=== PATIENT | male | born 1945 | race Two or more races ===

== ENCOUNTER 2024-10-20 00:47 | Emergency (ER) | payer OTHER ==
[~2024-10-20] VITALS: Ht 188 cm; Wt 90.9 kg
[2024-10-20] MEDS ORDERED: SODIUM CHLORIDE 0.9% 1,000 ML IV ONE (01:00)
[2024-10-20] MEDS ORDERED: MAGNESIUM SULFATE 1GM/100ML 100 ML IV SCH (01:00)
[2024-10-20] MEDS: IPRATROPIUM BROM 0.5 MG/2.5ML INH SOL NEB ONE (01:14)
[2024-10-20] MEDS: ALBUTEROL SULF 2.5 MG/0.5ML(0.5%) NEB SOLN NEB ONE (01:14)
[2024-10-20 01:18] LABS: Base Excess -3.3 mmol/L (-2.0-3.0)
--- NOTE | 2024-10-20 01:22 | DVH ---
CHEST RADIOGRAPH Indication: SOB Technique: 1 view Comparison: None FINDINGS: Lines and Tubes: None Lungs/Pleura: Mild interstitial prominence. No evidence of focal consolidation, or pleural abnormali ty. Cardiomediastinum: Unremarkable. Other: No acute osseous abnormality. IMPRESSION: 1. Mild interstitial prominence suggesting edema or atypical infection. No consolidation.
--- NOTE | 2024-10-20 01:27 | ED.PDOC ---
SOB-HPI HPI Comments 79-year-old male who came to ER due to shortness of breath. Patient diagnosed with COVID-19 6 days ago, he has been having fever, cough, shortness of breath, chest tightness and wheezing, progressively worsening the past few days. Patient is saturating 94% room air Chief Complaint: Shortness of Breath Time Seen by MD: 01:26 Reviewed notes: Nurses Notes Information Source: Patient, Relative Mode of Arrival: Wheelchair Severity: Moderate Timing: Days Duration: Since onset Context: At Rest, With Light Exertion History of: Other (COVID-19) Prehospital treatment: Oxygen Associated Signs and Symptoms: Fever, Wheeze, Cough, Nasal Congestion, Sore Throat, Chest Pain If cough with SOB: Non-Productive Past Medical History Past Medical History (Other): COVID-19 Surgical History: Denies all surgeries Family History Family History: Reviewed,noncontributory to illness Social History Smoker: Non-Smoker Alcohol: Denies ETOH Use Drugs: Denies Drug Use Lives In: Home Constitutional: reports: fever; denies: chills, diaphoresis, fatigue, malaise, sweats, weakness, others EENTM: denies: blurred vision, double vision, ear bleeding, ear discharge, ear drainage, ear pain, ear ringing, eye pain, eye redness, hearing loss, mouth pain, mouth swelling, nasal discharge, nose bleeding, nose congestion, nose pain, photophobia, tearing, throat pain, throat swelling, voice changes, others Respiratory: reports: cough, SOB at rest, shortness of breath, SOB with excertion, wheezing; denies: hemoptysis, orthopnea, stridor, others Cardiovascular: reports: chest pain; denies: dizzy spells, diaphoresis, Dyspnea on exertion, edema, irregular heart beat, left arm pain, lightheadedness, palpitations, PND, syncope, others Gastrointestinal: denies: abdomen distended, abdominal pain, blood streaked bowels, constipated, diarrhea, dysphagia, difficulty swallowing, hematemesis, melena, nausea, poor appetite, poor fluid intake, rectal bleeding, rectal pain, vomiting, others Genitourinary: denies: burning, dysuria, flank pain, frequency, hematuria, incontinence, penile discharge, penile sore, pain, testicle pain, testicle swelling, urgency, others Neurological: denies: dizziness, fainting, headache, left sided numbness, left sided weakness, numbness, paresthesia, pre-existing deficit, right sided numbness, right sided weakness, seizure, speech problems, tingling, tremors, weakness, others Musculoskeletal: denies: back pain, gout, joint pain, joint swelling, muscle p ain, muscle stiffness, neck pain, others Integumetry: denies: bruises, change in color, change in hair/nails, dryness, laceration, lesions, lumps, rash, wounds, others Allergic/Immunocompromised: denies: Difficulty Healing, Frequent Infections, Hives, Itching, others Hematologic/Lymphatic: denies: anemia, blood clots, easy bleeding, easy bruising, swollen glands, others Endocrine: denies: excessive hunger, excessive sweating, excessive thirst, excessive urination, flushing, intolerance to cold, intolerance to heat, unexplained weight gain, unexplained weight loss, others Psychiatric: denies: anxiety, bipolar disorder, depression, hopeless, panic disorder, schizophrenia, sleepless, suicidal, others Physical Exam General Appearance: No Apparent Distress, Normal HEENT: Normal ENT Inspection, Pharynx Normal, TMs Normal Neck: Full Range of Motion, Non-Tender, Normal, Normal Inspection Respiratory: Chest Non-Tender, No Accessory Muscle Use, Respiratory Distress, Wheezing Cardiovascular: No Edema, No JVD, No Murmur, No Gallop, Normal Peripheral Pulses, Regular Rate/Rhythm Breast Exam: Deferred Gastrointestinal: No Organomegaly, Non Tender, No Pulsatile Mass, Normal Bowel Sounds, Soft Genitalia: Deferred Pelvic: Deferred Rectal: Deferred Extremities: No calf tenderness, Normal capillary refill, Normal inspection, Normal range of motion, Non-tender, No pedal edema Musculoskeletal : Apperance: Normal Neurologic: Alert, 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 Was a procedure done?: No Differential Dx Differential Diagnosis: Asthma, Bronchitis, COPD, Pneumonia, Respiratory Distress, Other (COVID-19) X-Ray, Labs, Meds, VS Vital Signs Date Time Temp Pulse Resp B/P (MAP) Pulse Ox O2 Delivery O2 Flow Rate FiO2 10/20/24 01:16 22 91 Room Air* 0 21 10/20/24 00:49 99.1 88 20 132/84 94 99.1 Lab Test 10/20/24 02:19 10/20/24 01:12 10/20/24 01:11 Range/Units Troponin I High Sensitivity 5 6 </=54 ng/L Blood Gas Specimen Type Arterial Blood Gas Sample Site Right radial Blood Gas Patient Temperature 37.0 Arterial Blood Date Drawn [id number] Arterial Blood pH 7.480 H 7.350-7.450 Arterial Blood Partial Pressure CO2 24.1 L 35.0-48.0 mmHg Arterial Blood Partial Pressure O2 67.4 L 83.0-108.0 mmHg Arterial Blood HCO3 17.5 L 21.0-28.0 mmol/L Arterial Blood Oxygen Saturation 94.3 94.0-98.0 % Arterial Blood Base Excess -3.3 L -2.0-3.0 mmol/L Arterial Blood Oxyhemoglobin 93.4 L 94.0-98.0 % Arterial Blood Carboxyhemoglobin 0.3 L 0.5-1.5 % Arterial Blood Methemoglobin 0.7 0.0-1.5 % Sumanth Test Modified Blood Gas Total Hemoglobin 19.10 *H 13.5-17.5 g/dL Blood Gas Modality Room air FiO2 % 21.0 Blood Gas Critical Value Read Back Yes Blood Gas Notified Whom Md herminia stout Blood Gas Notified Time [id number] Blood Gas Notified By Rt lisa ramires White Blood Count 11.4 H 4.4-10.8 10^3/uL Red Blood Count 5.92 H 4.5-5.90 10^6/uL Hemoglobin 18.1 H 13.5-17.5 g/dL Hematocrit 51.5 41.0-53.0 % Mean Corpuscular Volume 87.0 80.0-100.0 fL Mean Corpuscular Hemoglobin 30.6 28.0-32.0 pg Mean Corpuscular Hemoglobin Concent 35.1 32.0-36.0 g/dL Red Cell Distribution Width 13.5 11.8-14.3 % Platelet Count 229 140-450 10^3/uL Mean Platelet Volume 7.3 6.9-10.8 fL Neutrophils (%) (Auto) 82.4 H 37.0-80.0 % Lymphocytes (%) (Auto) 8.3 L 10.0-50.0 % Monocytes (%) (Auto) 9.2 0.0-12.0 % Eosinophils (%) (Auto) 0.0 0.0-7.0 % Basophils (%) (Auto) 0.1 0.0-2.0 % Neutrophils # (Auto) 9.4 H 1.6-8.6 10 ^3/uL Lymphocytes # (Auto) 0.9 0.4-5.4 10 ^3/uL Monocytes # (Auto) 1.1 0-1.3 10 ^3/uL Eosinophils # (Auto) 0 0-0.8 10 ^3/uL Basophils # (Auto) 0 0-0.2 10 ^3/uL Nucleated Red Blood Cells 0.0 % Sodium Level 137 136-145 mmol/L Potassium Level 3.8 3.5-5.1 mmol/L Chloride Level 104 98-107 mmol/L Carbon Dioxide Level 22 20-31 mmol/L Anion Gap 11 5-15 Blood Urea Nitrogen 17 9-23 mg/dL Creatinine 0.95 0.700-1.30 mg/dL Glomerular Filtration Rate Calc 82 >90 mL/min BUN/Creatinine Ratio 17.9 10.0-20.0 Serum Glucose 119 H 74-106 mg/dL Lactic Acid Level 1.6 0.4-2.0 mmol/L Calcium Level 9.5 8.7-10.4 mg/dL Total Bilirubin 1.5 H 0.2-1.0 mg/dL Aspartate Amino Transferase (AST) 42 H 13-40 U/L Alanine Aminotransferase (ALT) 41 H 7-40 U/L Alkaline Phosphatase 68 46-116 U/L Total Protein 7.3 5.7-8.2 g/dL Albumin 4.5 3.2-4.8 g/dL Current Medications Medications (Trade) Dose Ordered Sig/Nani Route Start Time Stop Time Status Last Admin Methylprednisolone Sodium Succinate (Solu Medrol) 125 mg ONCE ONCE IV 10/20/24 01:00 10/20/24 01:01 DC 10/20/24 03:06 Albuterol (Ventolin Medneb) 10 mg ONCE ONCE NEB 10/20/24 01:00 10/20/24 01:01 DC 10/20/24 01:14 Ipratropium [place] (Atrovent Medneb) 0.5 mg ONCE ONCE NEB 10/20/24 01:00 10/20/24 01:01 DC 10/20/24 01:14 CHEST RADIOGRAPH Indication: SOB Technique: 1 view Comparison: None FINDINGS: Lines and Tubes: None Lungs/Pleura: Mild interstitial prominence. No evidence of focal consolidation, or pleural abnormality. Cardiomediastinum: Unremarkable. Other: No acute osseous abnormality. IMPRESSION: 1. Mild interstitial prominence suggesting edema or atypical infection. No consolidation. Time of 1ST Reevaluation: 01:22 Reevaluation 1ST: Unchanged Patient Education/Counseling: Diagnosis, Treatment Family Education/Counseling: Diagnosis, Treatment SEPSIS Sepsis Screen Date sepsis recognized/suspect: Oct 20, 2024 Time Sepsis recognized/suspect: 48 Recent Procedure: No On Antibiotic Therapy: No Respiratory Rate >20: No Heart Rate >90: No Temp<36 C (96.8 F) or >38.3 C: No SBP <90 or MAP <65 mmHG: No New Acute Mental Status Change: No Is the patient on CPAP, BIPAP,: No Physician Orders Chest Portable (10/20/24 00:53) Blood Culture (10/20/24 01:36) Electrocardigram (10/20/24 01:36) Covid19 Antigen Amy (10/20/24 ) Rapid Influenza A&B (10/20/24 01:36) Abg W/ Co-Ox (10/20/24 01:10) Vital Signs Date Time Temp Pulse Resp B/P (MAP) Pulse Ox O2 Delivery O2 Flow Rate FiO2 10/20/24 01:16 22 91 Room Air* 0 21 10/20/24 00:49 99.1 88 20 132/84 94 99.1 Laboratory Tests Test 10/20/24 01:11 Lactic Acid Level 1.6 mmol/L (0.4-2.0) White Blood Count 11.4 10^3/uL (4.4-10.8) H Medications Medications Dose Ordered Sig/Nani Route Start Time Stop Time Status Last Admin Dose Admin Albuterol 10 mg ONCE ONCE NEB 10/20/24 01:00 10/20/24 01:01 DC 10/20/24 01:14 Ipratropium [place] 0.5 mg ONCE ONCE NEB 10/20/24 01:00 10/20/24 01:01 DC 10/20/24 01:14 Methylprednisolone Sodium Succinate 125 mg ONCE ONCE IV 10/20/24 01:00 10/20/24 01:01 DC 10/20/24 03:06 Departure 1 Departure Time of Disposition: 03:34 Impression: Primary Impression: COVID-19 Additional Impression: Pneumonitis Disposition: 09 ADMITTED INPATIENT Condition: Guarded Comments 79-year-old male with prior positive COVID test now with some respiratory distress at home. Patient in mild respiratory distress with some rhonchi and wheezes bilaterally. Lab workup shows a elevated white blood cell count of 11.4. Total bilirubin slightly elevated 1.5, AST slightly elevated at 42 and ALT slightly elevated at 41. Patient is elderly and frail and will need admission for supportive care and further workup of COVID 19 infection with pneumonitis Critical Care Note Critical Care Time?: Yes (35 min-critical care time only) Critical care comment: Total critical care time: Approximately 36 minutes Due to a high probability of clinically significant, life threatening deterioration, the patient required my highest level of preparedness to intervene emergently and I personally spent this critical care time directly and personally managing the patient. This critical care time included obtaining a history; examining the patient; pulse oximetry; ordering and review of studies; arranging urgent treatment with development of a management plan; evaluation of patient's response to treatment; frequent reassessment; and, discussions with other providers. This critical care time was performed to assess and manage the high probability of imminent, life-threatening deterioration that could result in multi-organ failure. It was exclusive of separately billable procedures and treating other patients. Stability Stability form required: No Heart Score Heart Score: Heart Score Response (Comments) Value History N/A 0 EKG N/A 0 Age N/A 0 Risk Factors N/A 0 Troponin N/A 0 Total 0 I personally scribed for JEREMI STOUT MD ([email or web address]) on 10/20/24 at 01:27. Electronically submitted by Paresh Francisco ([employer]). I personally scribed for JEREMI STOUT MD ([email or web address]) on 10/20/24 at 01:28. Electronically submitted by Paresh Francisco ([email or web address] JEREMI STOUT MD Oct 20, 2024 01:27
[2024-10-20 01:52] LABS: Hemoglobin 18.1 g/dL (13.5-17.5); Nucleated Red Blood Cells % 0.0 %
[2024-10-20 01:58] LABS: Hematocrit 51.5 % (41.0-53.0); Mean Corpuscular Hemoglobin 30.6 pg (28.0-32.0); Mean Corpuscular Volume 87.0 fL (80.0-100.0)
[2024-10-20 02:04] LABS: Albumin 4.5 g/dL (3.2-4.8); Alkaline Phosphatase 68 U/L (46-116); Anion Gap 11 (5-15); BUN/Creatinine Ratio 17.9 (10.0-20.0); Blood Urea Nitrogen 17 mg/dL (9-23); Calcium 9.5 mg/dL (8.7-10.4); Carbon Dioxide 22 mmol/L (20-31); Chloride 104 mmol/L (98-107); Potassium 3.8 mmol/L (3.5-5.1); Sodium 137 mmol/L (136-145); Total Protein 7.3 g/dL (5.7-8.2)
[2024-10-20 02:09] LABS: Alanine Aminotransferase 41 U/L (7-40); Bilirubin, Total 1.5 mg/dL (0.2-1.0); Glucose 119 mg/dL (74-106)
[2024-10-20] MEDS: methylPREDNISolone SOD SUCC 125 MG/2 ML VL IV ONE (03:06)
[2024-10-20] MEDS ORDERED: IPRATROPIUM BROM 0.5 MG/2.5ML INH SOL NEB PRN (03:45)
[2024-10-20] MEDS ORDERED: HYDROcodone-ACET 5/325MG TAB PO PRN (03:45)
[2024-10-20] MEDS ORDERED: DOCUSATE SOD 100 MG CAP PO PRN (03:45)
[2024-10-20] MEDS ORDERED: ONDANSETRON HCL 4 MG/2 ML VIAL IV PRN (03:45)
[2024-10-20] MEDS ORDERED: IBUPROFEN 600 MG TAB PO PRN (03:45)
[2024-10-20] MEDS ORDERED: ALBUTEROL SULF 2.5 MG/0.5ML(0.5%) NEB SOLN NEB PRN (03:45)
[2024-10-20 04:00] VITALS: BP 132/84; PULSE 88; RESP 20; TEMP 99.1; O2SAT 91
[2024-10-20] MEDS: AZITHROMYCIN 500MG/ 250ML 250 ML IV ONE (04:35)
[2024-10-20] MEDS: LEVOTHYROXINE SODIUM 50 MCG TAB PO SCH (06:18)
[2024-10-20] MEDS: SODIUM CHLOR 0.9% PF (SALINE LOCK) 10ML VIAL/SYR IV SCH (06:42)
[2024-10-20 06:47] LABS: Hematocrit 50.7 % (41.0-53.0); Hemoglobin 17.8 g/dL (13.5-17.5); Mean Corpuscular Hemoglobin 30.8 pg (28.0-32.0); Mean Corpuscular Volume 87.9 fL (80.0-100.0); Nucleated Red Blood Cells % 0.1 %
[2024-10-20 06:49] LABS: Alanine Aminotransferase 39 U/L (7-40); Albumin 4.3 g/dL (3.2-4.8); Alkaline Phosphatase 66 U/L (46-116); Anion Gap 12 (5-15); BUN/Creatinine Ratio 16.2 (10.0-20.0); Blood Urea Nitrogen 19 mg/dL (9-23); Calcium 9.3 mg/dL (8.7-10.4); Carbon Dioxide 20 mmol/L (20-31); Chloride 104 mmol/L (98-107); Potassium 3.7 mmol/L (3.5-5.1); Sodium 136 mmol/L (136-145); Total Protein 7.0 g/dL (5.7-8.2)
[2024-10-20 06:49] LABS: COVID19 ANTIGEN SOFIA FIA POSITIVE (NEGATIVE)
[2024-10-20 06:56] LABS: Bilirubin, Total 1.7 mg/dL (0.2-1.0); Glucose 171 mg/dL (74-106)
[2024-10-20 08:25] VITALS: PULSE 68; RESP 30; O2SAT 95
[2024-10-20] MEDS: FAMOTIDINE (10MG/ML) 2ML VL IV SCH (11:20)
[2024-10-20 12:32] VITALS: BP 127/69; PULSE 76; RESP 30; TEMP 97.6; O2SAT 95
[2024-10-20] MEDS ORDERED: methylPREDNISolone SOD SUCC 40 MG/ML VL IV SCH (14:00)
[2024-10-21] MEDS ORDERED: AZITHROMYCIN 500MG/ 250ML 250 ML IV SCH (10:00)
== END 2024-10-20 05:38 | disposition short-term general hospital (02) ==
LOC: ER 00:47
DX: R06.02 Shortness of breath (principal); U07.1 COVID-19; J18.9 Pneumonia, unspecified organism
CPT/HCPCS: 36415; 36600; 71045; 80053; 82805; 83605; 84443; 84484; 85025; 87040; 87426; 87804; 94640; 96365; 96375; 99291; J0456; J2919; J3490